=== PATIENT | male | born 1950 | race Caucasian/White ===

== ENCOUNTER 2016-07-28 10:01 | Emergency (ER) | payer MEDICARE ==
[2016-07-28 11:05] LABS: HEMOGLOBIN 16.3 gm/dl (14.0-17.5); RED BLOOD COUNT 5.11 M/UL (4.20-5.50); WHITE BLOOD COUNT 8.6 K/UL (4.5-11.0)
[2016-07-28 11:26] LABS: BUN/CREATININE RATIO 14 (0-10)
== END 2016-07-28 15:58 | disposition home or self-care (01) ==
LOC: ER1 10:01
PROVIDERS: Physician Assistant
DX: R07.9 Chest pain, unspecified (principal); F17.200 Nicotine dependence, unspecified, uncomplicated
CPT/HCPCS: 36415; 71010; 80053; 82550; 82553; 83874; 84484; 85025; 85379; 93005; 99285

== ENCOUNTER → 2020-06-12 | Outpatient (CLI) | payer MEDICARE, OTHER ==
[~2020-06-12] MED LIST: ALBUTEROL1.25 MG/3 INH; NEBULIZER MACHINE; NEBULIZER UNIT NEB; PREDNISONE 50 M50 MG PO; PROVENTIL HFA6.7 GM INH; TESSALON PERLE100 MG PO; VIBRAMYCIN100 MG PO
== END ==
LOC: RAD 12:43
DX: M54.89 Other dorsalgia (principal); M48.54XA Collapsed vertebra, not elsewhere classified, thoracic region, initial encounter for fracture; M89.9 Disorder of bone, unspecified
CPT/HCPCS: 72128; 72131

== ENCOUNTER → 2021-05-11 | Outpatient (CLI) | payer MEDICARE ==
[2021-05-11 13:09] LABS: HEMOGLOBIN 12.7 gm/dl (14.0-17.5); RED BLOOD COUNT 3.65 M/UL (4.20-5.50); WHITE BLOOD COUNT 3.4 K/UL (4.5-11.0)
[2021-05-12 08:14] LABS: RHEUMATOID ARTHRITIS FACTOR 180.5 IU/mL (<14.0)
== END ==
LOC: LAB 12:09
PROVIDERS: Anesthesiology Pain Medicine
DX: C90.02 Multiple myeloma in relapse (principal); Z87.310 Personal history of (healed) osteoporosis fracture
CPT/HCPCS: 36415; 80048; 82310; 85027; 86038; 86140; 86431

== ENCOUNTER → 2021-05-11 | Outpatient (CLI) | payer MEDICARE | LOC: EXRD 11:05 | DX: C90.02 Multiple myeloma in relapse (principal); Z87.310 Personal history of (healed) osteoporosis fracture; M85.88 Other specified disorders of bone density and structure, other site; M85.852 Other specified disorders of bone density and structure, left thigh | CPT/HCPCS: 77080 ==

== ENCOUNTER 2021-06-14 01:33 | Emergency (ER) | payer MEDICARE ==
[2021-06-14 02:24] LABS: HEMOGLOBIN 10.2 gm/dl (14.0-17.5); RED BLOOD COUNT 3.1 M/UL (4.20-5.50); WHITE BLOOD COUNT 2.4 K/UL (4.5-11.0)
[2021-06-14] MEDS ORDERED: PREDNISONE20 MG PO (05:39)
[2021-06-14] MEDS ORDERED: MUCINEX600 MG PO (05:40)
== END 2021-06-14 06:05 | disposition home or self-care (01) ==
LOC: ER1 01:33
PROVIDERS: Family Medicine
DX: J11.1 Influenza due to unidentified influenza virus with other respiratory manifestations (principal); J42 Unspecified chronic bronchitis; Z20.822 Contact with and (suspected) exposure to COVID-19
CPT/HCPCS: 0240U; 71045; 80053; 83605; 83735; 85025; 87040; 94640; 94664; 96374; 99284; J2930; J7040

== ENCOUNTER 2021-06-18 04:33 | Inpatient (IN) | payer MEDICARE, OTHER ==
[~2021-06-18] VITALS: Ht 170.2 cm; Wt 49.9 kg
[~2021-06-18 04:33] MED LIST changes: +MUCINEX600 MG PO; +PREDNISONE20 MG PO
[2021-06-18 05:07] LABS: HEMOGLOBIN 11.1 gm/dl (14.0-17.5); RED BLOOD COUNT 3.43 M/UL (4.20-5.50); WHITE BLOOD COUNT 2.4 K/UL (4.5-11.0)
[2021-06-18 05:34] LABS: BUN/CREATININE RATIO 31 (0-10)
[2021-06-18] MEDS ORDERED: AUGMENTIN 875-1 EACH PO (12:37)
[2021-06-18] MEDS ORDERED: ROXICODONE5 MG PO (12:37)
[2021-06-18] MEDS ORDERED: REVLIMID5 MG PO (12:38)
[2021-06-18] MEDS ORDERED: ENDOCET 5-3251 EACH PO (12:38)
[2021-06-18] MEDS ORDERED: ASPIRIN EC81 MG PO (12:39)
[2021-06-19 04:44] LABS: HEMOGLOBIN 9.5 gm/dl (14.0-17.5)
[2021-06-19 05:04] LABS: RED BLOOD COUNT 2.88 M/UL (4.20-5.50)
[2021-06-20 08:05] LABS: HEMOGLOBIN 9.5 gm/dl (14.0-17.5); RED BLOOD COUNT 2.85 M/UL (4.20-5.50); WHITE BLOOD COUNT 2.4 K/UL (4.5-11.0)
[2021-06-21 08:09] LABS: HEMOGLOBIN 8.8 gm/dl (14.0-17.5); RED BLOOD COUNT 2.64 M/UL (4.20-5.50); WHITE BLOOD COUNT 2.8 K/UL (4.5-11.0)
[2021-06-21 08:34] LABS: BUN/CREATININE RATIO 38 (0-10)
[2021-06-22 06:48] LABS: HEMOGLOBIN 9.4 gm/dl (14.0-17.5); RED BLOOD COUNT 2.8 M/UL (4.20-5.50)
[2021-06-22 07:00] LABS: BUN/CREATININE RATIO 35 (0-10)
[2021-06-23] MEDS ORDERED: LEVOFLOXACIN750 MG PO (14:32)
[2021-06-23] MEDS ORDERED: PULMICORT0.5 MG/2 M INH (14:32)
[2021-06-23] MEDS ORDERED: IPRAT-ALBUT 0.5-3 ML NEB (14:32)
[2021-06-23] MEDS ORDERED: PREDNISONE 5 MG5 MG PO (14:32)
== END 2021-06-23 19:00 | disposition home health service (06) | DRG 193 ==
LOC: ER1 04:33 → CDU 08:31 → MED SURG 4 08:31
PROVIDERS: Emergency Medicine; Physician Assistant Medical; ADMIT Internal Medicine
DX: J15.9 Unspecified bacterial pneumonia (principal); D61.811 Other drug-induced pancytopenia; J96.21 Acute and chronic respiratory failure with hypoxia; E44.0 Moderate protein-calorie malnutrition; Z68.1 Body mass index [BMI] 19.9 or less, adult; N17.9 Acute kidney failure, unspecified; J44.1 Chronic obstructive pulmonary disease with (acute) exacerbation; J44.0 Chronic obstructive pulmonary disease with (acute) lower respiratory infection; Z20.822 Contact with and (suspected) exposure to COVID-19; T45.1X5A Adverse effect of antineoplastic and immunosuppressive drugs, initial encounter; J10.08 Influenza due to other identified influenza virus with other specified pneumonia; E86.0 Dehydration; R53.81 Other malaise; L89.151 Pressure ulcer of sacral region, stage 1; Z98.890 Other specified postprocedural states; Z85.51 Personal history of malignant neoplasm of bladder; Z87.891 Personal history of nicotine dependence; Z85.6 Personal history of leukemia; Z92.21 Personal history of antineoplastic chemotherapy; Z79.899 Other long term (current) drug therapy; Z85.79 Personal history of other malignant neoplasms of lymphoid, hematopoietic and related tissues; Z79.82 Long term (current) use of aspirin; Z79.52 Long term (current) use of systemic steroids
CPT/HCPCS: 0240U; 36415; 36600; 71045; 80048; 82550; 82553; 82565; 82803; 83605; 83735; 83874; 84484; 85025; 85027; 85049; 87040; 87081; 93005; 94640; 94664; 94760; 96374; 96375; 96376; 97110; 97161; 97166; 99285; J0696; J1100; J2920; J2930

== ENCOUNTER → 2021-11-18 | Outpatient (CLI) | payer MEDICARE, OTHER ==
[~2021-11-18] MED LIST changes: +ASPIRIN EC81 MG PO; +AUGMENTIN 875-1 EACH PO; +ENDOCET 5-3251 EACH PO; +IPRAT-ALBUT 0.5-3 ML NEB; +LEVOFLOXACIN750 MG PO; +PREDNISONE 5 MG5 MG PO; +PULMICORT0.5 MG/2 M INH; +REVLIMID5 MG PO; +ROXICODONE5 MG PO
== END ==
LOC: LAB 11:06
DX: Z20.822 Contact with and (suspected) exposure to COVID-19 (principal)
CPT/HCPCS: U0003